=== PATIENT | female | born 1950 | race Caucasian/White ===

== ENCOUNTER 2016-05-04 09:37 | Day surgery (SDC) | payer MEDICARE, OTHER ==
[2016-05-04] MEDS ORDERED: LACTATED RINGERS 1,000 ML IV ONE (10:22)
[2016-05-04] MEDS ORDERED: MIDAZOLAM 2 MG/2 ML VIAL IVP ONE (11:55)
[2016-05-04] MEDS ORDERED: fentaNYL 250 MCG/5 ML VIAL IVP ONE (11:55)
== END 2016-05-04 09:38 | disposition home or self-care (01) ==
PROC: 0DJD8ZZ Inspection of Lower Intestinal Tract, Via Natural or Artificial Opening Endoscopic (ICD-10-PCS; principal; 2016-05-04 11:15)
DX: Z12.11 Encounter for screening for malignant neoplasm of colon (principal); E03.9 Hypothyroidism, unspecified; Z90.710 Acquired absence of both cervix and uterus; Z96.653 Presence of artificial knee joint, bilateral; K57.30 Diverticulosis of large intestine without perforation or abscess without bleeding
CPT/HCPCS: G0121; J3010; J7120

== ENCOUNTER 2017-10-12 10:37 | Outpatient (CLI) | payer MEDICARE, OTHER ==
--- NOTE | 2017-10-15 13:37 | Mammography Report ---
Procedure Date: 10/12/2017 Accession Number: [id number] / [id number] Procedure: MGN - Screening Mammo Dig Bilat CPT Code: FULL RESULT: EXAM: Screening Mammo Dig Bilat DATE: 10/12/2017 11:05 AM CLINICAL HISTORY: Routine screening TECHNIQUE: Bilateral CC and MLO views were obtained. COMPARISON: 11/19/2015, 10/23/2014 and 08/01/2013 FINDINGS: The breast tissue is heterogeneously dense.. There is been no significant interval change. No suspicious masses, clustered microcalcifications, or regions of architectural distortion are identified. IMPRESSION: Negative examination. RECOMMENDATION: Routine annual screening unless otherwise clinically indicated. BIRADS CATEGORY 1: Negative. STANDARD QUALIFYING STATEMENTS: 1. This examination was reviewed with the aid of Computer-Aided Detection (CAD). 2. A negative or benign imaging report should not delay biopsy if clinically suspicious findings are present. Consider surgical consultation if warrented. More than 5% of cancers are not identified by imaging. 3. Dense breasts may obscure an underlying neoplasm.
== END 2017-10-12 10:38 | disposition home or self-care (01) ==
LOC: DI.N 10:37
PROVIDERS: ATTEND Internal Medicine
DX: Z12.31 Encounter for screening mammogram for malignant neoplasm of breast (principal)
CPT/HCPCS: 77067

== ENCOUNTER 2018-11-06 08:15 | Outpatient (CLI) | payer MEDICARE, OTHER ==
--- NOTE | 2018-11-06 09:35 | Mammography Report ---
Reason: SCREENING MAMMO Procedure Date: 11/06/2018 Accession Number: [id number] / [id number] Procedure: MGN - Screening Mammo Dig Bilat CPT Code: FULL RESULT: EXAM: Screening Mammo Dig Bilat DATE: 11/06/2018 8:43 AM CLINICAL HISTORY: Routine screening TECHNIQUE: (B) - Bilateral CC and MLO views were obtained. COMPARISON: 10/12/2017, 11/19/2015, 10/23/2014 and 08/01/2013 PARENCHYMAL PATTERN: (D) - The breasts demonstrate heterogeneously dense fibroglandular parenchyma bilaterally. FINDINGS: No significant interval change. There are no suspicious masses, calcifications, or areas of distortion. IMPRESSION: Negative examination. BI-RADS category 1. RECOMMENDATION: (ANNUAL) - Recommend routine annual screening mammography. BI-RADS CATEGORY: (1) - Negative. STANDARD QUALIFYING STATEMENTS: 1. This examination was not reviewed with the aid of Computer-Aided Detection (CAD). 2. A negative or benign imaging report should not preclude biopsy if clinically suspicious findings are present. 3. Dense breasts may obscure an underlying neoplasm. 4. This examination was reviewed without the aid of 3D breast imaging (tomosynthesis).
== END 2018-11-06 08:16 | disposition home or self-care (01) ==
LOC: DI.N 08:15
DX: Z12.31 Encounter for screening mammogram for malignant neoplasm of breast (principal)
CPT/HCPCS: 77067

== ENCOUNTER 2018-11-07 09:10 | Outpatient (CLI) | payer MEDICARE, OTHER ==
--- NOTE | 2018-11-08 19:43 | Ultrasound Report ---
Reason: ABNORMAL RESULTS OF LIVER FUNCTION STUDIES Procedure Date: 11/07/2018 Accession Number: [id number] / [id number] Procedure: US - Abdomen Limited CPT Code: FULL RESULT: EXAM: ABDOMEN ULTRASOUND LIMITED, RUQ EXAM DATE: 11/07/2018 10:02 AM. CLINICAL HISTORY: ABNORMAL RESULTS OF LIVER FUNCTION STUDIES. COMPARISON: None. TECHNIQUE: Real-time scanning was performed with static images obtained. FINDINGS: Liver: Mildly echogenic hepatic parenchyma. No hepatic lesions. No intra-hepatic ductal dilatation. The liver is not enlarged, 15.5 cm. Main portal vein flow: Hepatopetal. Gallbladder: Normal. No stones, wall thickening, or sonographic Arrieta's sign. Biliary System: CBD measures 5-6 mm. No intrahepatic or extrahepatic ductal dilatation. Other: Right kidney is normal in contour and echotexture and measures 11.1 cm in maximal length. No hydronephrosis. IMPRESSION: 1. Mild echogenic hepatic parenchyma, findings which can be seen with mild hepatic steatosis. No hepatic lesions. 2. Normal gallbladder. No biliary ductal dilatation. RADIA
== END 2018-11-07 09:11 | disposition home or self-care (01) ==
LOC: DI 09:10
PROVIDERS: ATTEND Internal Medicine
DX: R94.5 Abnormal results of liver function studies (principal)
CPT/HCPCS: 76705

== ENCOUNTER 2019-02-05 16:23 | Outpatient (CLI) | payer MEDICARE, OTHER ==
--- NOTE | 2019-02-05 22:12 | Ultrasound Report ---
Reason: RECURRENT UTI,UTI DUE TO KLEBSIELLA SPECIES Procedure Date: 02/05/2019 Accession Number: [id number] / [id number] Procedure: US - Retroperitoneal CPT Code: Final Report FULL RESULT: EXAM: RENAL ULTRASOUND EXAM DATE: 02/05/2019 05:10 PM. CLINICAL HISTORY: RECURRENT UTI,UTI DUE TO KLEBSIELLA SPECIES. COMPARISON: RETROPERITONEAL 06/24/2015 8:13 PM. TECHNIQUE: Real-time scanning was performed with static images obtained. FINDINGS: Right Kidney: 11.1 x 5.1 x 5.8 cm. Normal echotexture with no stones, contour-deforming masses, or hydronephrosis. Extrarenal pelvis versus parapelvic cyst measuring 1.8 x 1.6 cm. Left Kidney: 11.2 x 5.6 x 4.9 cm. Normal echotexture with no stones, contour-deforming masses, or hydronephrosis. Bladder: Bilateral jets seen. The prevoid bladder volume was 660 cc. The postvoid bladder volume was 119 cc. Other: None. IMPRESSION: Significant postvoid residue/1 19 cc. Extrarenal pelvis versus parapelvic cyst in right kidney. No other significant abnormality. RADIA
== END 2019-02-05 16:24 | disposition home or self-care (01) ==
LOC: DI 16:23
PROVIDERS: ATTEND Urology
DX: N39.0 Urinary tract infection, site not specified (principal); B96.1 Klebsiella pneumoniae [K. pneumoniae] as the cause of diseases classified elsewhere
CPT/HCPCS: 76770

== ENCOUNTER 2021-10-26 16:27 | Outpatient (CLI) | payer MEDICARE, OTHER ==
--- NOTE | 2021-10-26 17:34 | XRAY Report ---
PROCEDURE: Hip w/Pelvis 1V RT INDICATIONS: R HIP PX TECHNIQUE: AP pelvis with lateral view(s) of the right hip(s). COMPARISON: None. FINDINGS: Bones: No fractures or dislocations. Moderate bilateral hip DJD. No avascular necrosis of the right femoral head. Pelvic ring appears intact. No suspicious bony lesions. Soft tissues: The visualized bowel gas pattern is normal. No suspicious soft tissue calcifications. IMPRESSION: Moderate bilateral hip DJD. Reviewed by: Zander Tovar MD on 10/26/2021 5:33 PM PDT Approved by: Zander Tovar MD on 10/26/2021 5:33 PM PDT Station ID: [id number]
== END 2021-10-26 16:28 | disposition home or self-care (01) ==
LOC: DI.N 16:27
PROVIDERS: ATTEND Internal Medicine
DX: M16.0 Bilateral primary osteoarthritis of hip (principal)

== ENCOUNTER 2022-05-08 12:08 | Outpatient (CLI) | payer MEDICARE, OTHER ==
--- NOTE | 2022-05-08 13:44 | XRAY Report ---
PROCEDURE: Ribs w/PA Chest LT INDICATIONS: RIB PAIN TECHNIQUE: 3 views of the left ribs were acquired, along with a single view chest. COMPARISON: None FINDINGS: Surgical changes and devices: None. Bones and chest wall: There are slight irregular cortical appearance of the lateral left seventh rib. No suspicious bony lesions. Overlying soft tissues appear unremarkable. Lungs and pleura: No pleural effusions or pneumothorax. Lungs appear clear. Mediastinum: Mediastinal contours appear normal. Heart size is normal. IMPRESSION: Slight cortical irregularity of the lateral left seventh rib. It is overall nonspecific and no priors are available for comparison. Recommend correlation of point tenderness, as nondisplaced fracture ca nnot be definitively excluded. Reviewed by: Desire Hernandez MD on 05/08/2022 1:43 PM PDT Approved by: Desire Hernandez MD on 05/08/2022 1:43 PM PDT Station ID: [id number]
== END 2022-05-08 12:09 | disposition home or self-care (01) ==
LOC: DI 12:08
PROVIDERS: ATTEND Internal Medicine
DX: R07.81 Pleurodynia (principal)

== ENCOUNTER 2022-06-28 10:37 | Outpatient (CLI) | payer MEDICARE, OTHER ==
--- NOTE | 2022-06-29 10:17 | Mammography Report ---
BILATERAL DIGITAL SCREENING MAMMOGRAM 3D/2D: 06/28/2022 CLINICAL: Routine screening. Comparison is made to exams dated: 11/06/2018 mammogram, 10/12/2017 mammogram, and 11/19/2015 mammogram - [facility]. Both breasts are heterogeneously dense, which may obscure small masses (category c / 51-75% glandular tissue). There are benign vascular calcifications in the right breast. There also are benign post operative f indings in the left breast. No significant masses, calcifications, or other findings are seen in either breast. There has been no significant interval change. IMPRESSION: BENIGN There is no mammographic evidence of malignancy. A 1 year screening mammogram is recommended. Based on the Tyrer Cuzick model (a risk assessment model) the patients lifetime risk is 5.0% and her 10 year risk is 4.5%. According to the ACR, ACS, and NCCN guidelines, an annual breast MRI exam lety g with mammogram is recommended if the patients lifetime risk is 20% or greater. This exam was interpreted at Station ID: [id number]. NOTE: For mammograms, a report in lay terms will be sent to the patient. Approximately 15% of breast malignancies will not be visualized mammographically. In the management of a palpable breast mass, a negative mammogram must not discourage biopsy of a clinically suspicious lesion. Electronically Signed By: Zander lord/tiffanie:06/29/2022 07:37:14 letter sent: No_Letter ACR BI-RADS Category 2: Benign Finding(s) 3342F PARENCHYMAL PATTERN: (D) - The breast(s) demonstrate(s) heterogeneously dense fibroglandular rj noriega. BI-RADS CATEGORY: (2) - 2 Mammogram [id number] 1 year screening LATERALITY: (B)
== END 2022-06-28 10:38 | disposition home or self-care (01) ==
LOC: DI.N 10:37
PROVIDERS: ATTEND Internal Medicine
DX: Z12.31 Encounter for screening mammogram for malignant neoplasm of breast (principal)

== ENCOUNTER 2022-07-05 08:14 | Outpatient (CLI) | payer MEDICARE, OTHER ==
--- NOTE | 2022-07-05 09:48 | XRAY Report ---
PROCEDURE: Foot 2 View LT INDICATIONS: CONTUSION OF THE LEFT FOOT TECHNIQUE: 2 views of the foot were acquired. COMPARISON: None. FINDINGS: Bones: No fractures or dislocations. Mild to moderate left foot osteoarthritis is seen more notably at first MTP joint and first interphalangeal joint. No suspicious bony lesions. Soft tissues: No suspicious soft tissue calcifications or masses. IMPRESSION: Moderate left foot joint osteoarthritis. No fracture or dislocation. No gross soft tissue abnormaliti es. Reviewed by: Jarod Adan MD on 07/05/2022 9:47 AM PDT Approved by: Jarod Adan MD on 07/05/2022 9:47 AM PDT Station ID: [id number]
== END 2022-07-05 23:59 | disposition home or self-care (01) ==
LOC: DI.N 08:14
PROVIDERS: ATTEND Physician Assistant
DX: S90.32XA Contusion of left foot, initial encounter (principal); M19.072 Primary osteoarthritis, left ankle and foot

== ENCOUNTER 2022-08-10 07:13 | Outpatient (CLI) | payer MEDICARE, OTHER ==
--- NOTE | 2022-08-10 11:14 | CT Report ---
PROCEDURE: LOWER EXTREMITY WO - LT INDICATIONS: PAIN AND EDEMA LEFT FOOT TECHNIQUE: Noncontrast 1 mm axial sections acquired from the distal tibial shaft to the plantar aspect of the fo ot, with coronal and sagittal reformats. For radiation dose reduction, the following was used: auto mated exposure control, adjustment of mA and/or kV according to patient size. COMPARISON: Left foot radiographs 07/05/2022 FINDINGS: Image quality: Excellent. Bones: Minimally displaced oblique fracture of the 3rd proximal phalangeal shaft is noted that is no t seen on the prior radiographs from 07/05/2022 even in retrospect. There is trace dorsal angulation o f the distal fracture fragment without intra-articular extension. Old healed fracture deformity of th e 4th proximal phalanx. Mild sclerosis and periosteal new bone formation or seen at the mid 3rd metat arsal shaft without a visualized lucent fracture line, likely a healing fracture or stress reaction. Moderate degenerative changes are seen at the 1st metatarsophalangeal joint and there are degenerativ e changes scattered throughout the interphalangeal joints of the toes. A small posterior calcaneal en thesophyte is present. Soft tissues: Soft tissue edema is seen in the 3rd toe and throughout the distal forefoot. Focal nadege ma or fluid is seen along the plantar aspect of the 3rd metatarsal shaft. The articular cartilages, l igaments, and tendons are not well evaluated on standard CT. The musculature of the foot is normal in bulk. IMPRESSION: 1.Minimally displaced oblique fracture of the 3rd proximal phalangeal shaft. 2.Focal sclerosis and periosteal new bone formation at the 3rd metatarsal shaft is suspicious for hea ling fracture or healing stress reaction. Reviewed by: Robbi Martino MD on 08/10/2022 11:13 AM PDT Approved by: Robbi Martino MD on 08/10/2022 11:13 AM PDT Station ID: [id number]
== END 2022-08-10 07:14 | disposition home or self-care (01) ==
LOC: DI 07:13
PROVIDERS: ATTEND Internal Medicine
DX: S92.512A Displaced fracture of proximal phalanx of left lesser toe(s), initial encounter for closed fracture (principal)

== ENCOUNTER 2023-03-26 07:50 | Day surgery (SDC) | payer MEDICARE, OTHER ==
[2023-03-26] MEDS ORDERED: LACTATED RINGERS 1,000 ML IV ONE ×2 (08:00→09:48)
--- NOTE | 2023-03-26 08:38 | ANESTHESIA ---
Pre-Anesthesia VS, & Labs - Diagnosis positive cologuard - Procedure colonoscopy Vital Signs: Temp Pulse Resp BP Pulse Ox O2 Flow Rate 36.3 C L 85 14 115/59 L 98 0 03/26/23 08:01 03/26/23 08:01 03/26/23 08:01 03/26/23 08:01 03/26/23 08:01 03/26/23 08:01 Height: 5 ft 4 in Weight (kg): 59.2 kg Body Mass Index: 22.4 BMI Classification: Normal - NPO >8 hours - Is Patient ?: No Home Medications and Allergies Thyroid [[place] Thyroid] 60 mg PO DAILY 07/20/15 Bacillus Coagulans [Probiotic] 1 each PO DAILY 10/19/15 Allergies/Adverse Reactions: Allergies Allergy/AdvReac Type Severity Reaction Status Date / Time Iodine and Iodide Containing Allergy Unknown Verified 07/20/15 12:14 Produc povidone-iodine Allergy Unknown Verified 07/20/15 12:14 [From Betadine] shellfish derived Allergy Unknown Verified 07/20/15 12:14 Anes History & Medical History - Anesthetic History Anesthesia Complications: reports: No previous complications - Medical History Cardiovascular: reports: None Pulmonary: reports: None Gastrointestinal: reports: None Urinary: reports: None Neuro: reports: None Musculoskeletal: reports: Osteoarthritis Endocrine/Autoimmune: reports: HyPOthyroidism Blood Disorders: reports: None Skin: reports: None Smoking Status: Never smoker Psychosocial: reports: Alcohol (daily glass of wine) History of Cancer?: No - Surgical History General: reports: Colonoscopy Eyes Ears Nose Throat (EENT): reports: Tonsil/Adenoidectomy, Other Urologic: reports: Bladder surgery Gynecologic: reports: Other Orthopedic: reports: Knee replacement, Shoulder arthroplasty Exam General: Alert, Oriented x3, Cooperative, No acute distress Dental: WNL Mouth Openin Fingerbreadth Neck Mobility: Normal Mallampati classification: I Thyromental Distance: 4-6 cm Mental/Cognitive Status: Alert/Oriented X3, Normal for patient Plan Anesthesia Type: General, Total IV Consent for Procedure(s) Verified and Reviewed: Yes Code Status: Attempt Resuscitation ASA classification: 2-Mild systemic disease Is this case an emergency?: No
[2023-03-26] MEDS ORDERED: PROPOFOL 500 MG/50 ML 500 MG/50 ML VIAL ONE (08:54)
[2023-03-26 10:04] VITALS: O2SAT 100
--- NOTE | 2023-03-26 10:10 | ANESTHESIA POST OP EVALUATION ---
Anesthesia Post Eval - Post Anesthesia Eval Vitals: Last Vital Signs Temp 36.4 C L 03/26/23 09:54 Pulse 70 03/26/23 09:54 Resp 18 03/26/23 09:54 BP 95/65 03/26/23 09:54 Pulse Ox 100 03/26/23 09:54 O2 Flow Rate 0 03/26/23 08:01 CV Function Including HR & BP: Stable Pain Control: Satisfactory Nausea & Vomiting: Negative Mental Status: Baseline Respiratory Status: Airway Patent Hydration Status: Satisfactory Anesthesia Complications: None
[2023-03-26 10:14] VITALS: BP 132/70
== END 2023-03-26 07:51 | disposition home or self-care (01) ==
LOC: SDS 07:50
PROVIDERS: ATTEND Surgery
DX: Z12.11 Encounter for screening for malignant neoplasm of colon (principal); R19.5 Other fecal abnormalities; K57.30 Diverticulosis of large intestine without perforation or abscess without bleeding; K64.1 Second degree hemorrhoids
CPT/HCPCS: G0121; J7120